=== PATIENT | male | born 1945 | race Two or more races ===

== ENCOUNTER 2016-09-10 20:12 | Emergency (ER) | payer SELFPAY ==
[~2016-09-10] VITALS: Ht 170.2 cm; Wt 74.8 kg
[2016-09-10 20:18] VITALS: BP 154/77
[2016-09-10 21:50] LABS: BASOPHILS % (AUTO) 1.7 % (0.0-2.0); EOSINOPHILS % (AUTO) 2.6 % (0.0-3.0); LYMPHOCYTES % (AUTO) 25.2 % (20.0-45.0); MEAN CORPUSCULAR HEMOGLOBIN 32.9 PG (27.0-31.0); MEAN CORPUSCULAR HGB CONC 36.6 G/DL (32.0-36.0); MEAN CORPUSCULAR VOLUME 90 FL (80-99); MEAN PLATELET VOLUME 7.9 FL (6.5-10.1); MONOCYTES % (AUTO) 5.5 % (1.0-10.0); NEUTROPHILS % (AUTO) 65.1 % (45.0-75.0); PLATELET COUNT 177 K/UL (150-450); RED BLOOD COUNT 3.91 M/UL (4.70-6.10); RED CELL DISTRIBUTION WIDTH 12.4 % (11.6-14.8); WHITE BLOOD COUNT 11.7 K/UL (4.8-10.8)
[2016-09-10 22:23] LABS: TROPONIN I < 0.30 ng/mL (<=0.30)
[2016-09-10 22:28] LABS: ALANINE AMINOTRANSFERASE 21 U/L (3-41); ANION GAP 14 (5-15); ASPARTATE AMINO TRANSFERASE 36 U/L (5-40); CALCIUM 9.1 mg/dL (8.6-10.2); CARBON DIOXIDE 23 mEQ/L (20-30); CHLORIDE 97 mEQ/L (98-107); HEMOLYSIS 150; SODIUM 134 mEQ/L (135-145)
[2016-09-10 22:38] LABS: POTASSIUM 4.9 mEQ/L (3.4-4.9)
[2016-09-10] MEDS ORDERED: ZITHROMAX250 MG ORAL (23:11)
[2016-09-10 23:20] VITALS: BP 136/77
[2016-09-10 23:25] VITALS: BP 136/77
--- NOTE | 2016-09-11 11:58 | Diagnostic Imaging Report ---
Indication: Chest pain and shortness of breath Technique: Single portable AP view of the chest. Findings: Comparison: None. The bones and extra pulmonary soft tissues, cardiomediastinal silhouette, pulmonary vasculature and parenchyma, and pleural surfaces are unremarkable. IMPRESSION: Negative portable AP chest.
--- NOTE | 2016-09-11 23:29 | Emergency Room Report ---
History of Present Illness General Chief Complaint: Flu Like Symptoms Source: Patient, EMS Present Illness HPI 71 YO walk-in patient, currently asymptomatic, c/o 2 days of intermittent dry cough, muscle aches, headache, subjective fever. Got flu shot this year. Denies other medical problems. Denies smoking, ETOH, sick contacts. Allergies: Coded Allergies: No Known Allergies (Unverified , 09/10/16) Patient History Limited by: language barrier Past Medical History: none Past Surgical History: none Pertinent Family History: none Social History: Denies: alcohol use, drug use, smoking Immunizations: UTD Reviewed Nursing Documentation: PMH: Agreed, PSxH: Agreed Nursing Documentation-PMH Past Medical History: No History, Except For Hx Hypertension: Yes Hx Diabetes: Yes - DM2 Review of Systems All Other Systems: negative except mentioned in HPI Physical Exam Vital Signs Date Time Temp Pulse Resp B/P Pulse Ox O2 Delivery O2 Flow Rate FiO2 09/10/16 20:05 57 16 154/77 99 Room Air 09/10/16 20:18 98.4 Sp02 EP Interpretation: reviewed, abnormal General Appearance: normal inspection, well appearing, no apparent distress, alert, GCS 15, non-toxic, other - Very well appearing, well dressed elderly gentleman accompanied by friend Head: normocephalic, atraumatic Eyes: bilateral eye EOMI, bilateral eye PERRL ENT: normal ENT inspection, hearing grossly normal, normal pharynx, no angioedema, normal voice Neck: normal inspection, full range of motion, supple, no bony tend Respiratory: normal inspection, lungs clear, normal breath sounds, no rhonchi, no respiratory distress, no retraction, no accessory muscle use, no wheezing, speaking full sentences Cardiovascular #1: normal peripheral pulses, regular rate, rhythm, no edema Gastrointestinal: normal inspection, normal bowel sounds, non tender, soft, no guarding, no hernia Genitourinary: no CVA tenderness Musculoskeletal: normal inspection, back normal, normal range of motion, Sachin' s Sign negative Neurologic: normal inspection, alert, oriented x3, responsive, 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 H&H stable. No significant metabolic abnormalities. Trop 0. ECG NSR. No ischemia CXR: No obvious lobar PNA or infiltrate VSS, improved by discharge without ED intervention. Afebrile. Not systemically sick I have low suspicion for ACS given no known CAD risk factors, screening ECG shows no ischemia, duration of symtpoms and viral illness vs CAP being more likely cause. Influenza vs CAP, however no significant myalgias or systemic symptoms However recognizing extreme of age, will tx empirically outpatient for CAP with Z-pack Advised close PMD followup in 2-3 days EKG Diagnostic Results Rate: normal Rhythm: NSR ST Segments: other Chest X-Ray Diagnostic Results EP Interpretation: Yes Findings: no consolidation, no effusion, no pneumothorax, no acute cardiopulmonary disease Number of Views: 1 Last Vital Signs Date Time Temp Pulse Resp B/P Pulse Ox O2 Delivery O2 Flow Rate FiO2 09/10/16 23:25 98.7 76 16 136/77 99 Room Air Status: improved Disposition: HOME, SELF-CARE Condition: Improved Scripts Azithromycin* (ZITHROMAX*) 250 Mg Tablet 250 MG ORAL DAILY for 5 Days, #6 TAB 0 Refills Take two tables once daily for 1 day, then one tablet once daily for 4 days. Prov: ONDINA QUARLES M.D. 09/10/16 Referrals: NOT CHOSEN IPA/,REFERRING (PCP) Patient Instructions: Community-Acquired Pneumonia, Adult Additional Instructions: - Take ALL the antiobiotic as prescribed - Follow up with your primary care doctor in 2-3 days - Return to ER for worsening symptoms ONDINA QUARLES M.D. Sep 11, 2016 23:29
== END 2016-09-10 23:25 | disposition home or self-care (01) ==
LOC: EDBD 20:12 → EMR 20:59
DX: J11.1 Influenza due to unidentified influenza virus with other respiratory manifestations (principal); R51 Headache; I10 Essential (primary) hypertension; E11.9 Type 2 diabetes mellitus without complications
CPT/HCPCS: 36415; 71010; 80053; 82550; 82553; 84484; 85025; 93005; 99283